=== PATIENT | female | born 1975 | race Two or more races ===

== ENCOUNTER 2021-03-23 07:06 | Day surgery (SDC) | payer OTHER | END 2021-03-23 22:30 | disposition home or self-care (01) | LOC: CIR.AMB 07:06 | PROVIDERS: ATTEND Surgery | DX: C50.411 Malignant neoplasm of upper-outer quadrant of right female breast (principal); Z90.13 Acquired absence of bilateral breasts and nipples; Z20.822 Contact with and (suspected) exposure to COVID-19 ==

== ENCOUNTER 2021-08-03 06:00 | Day surgery (SDC) | payer OTHER | END 2021-08-03 15:05 | disposition home or self-care (01) | LOC: CIR.AMB 06:00 | PROVIDERS: ATTEND Plastic Surgery | DX: N65.1 Disproportion of reconstructed breast (principal) ==